=== PATIENT | female | born 1965 | race Asian ===

== ENCOUNTER 2021-03-12 20:13 | Inpatient (IN) | payer BC ==
[2021-03-12 22:25] LABS: BASO % 0.7 % (0-2.0); EOS % 6.9 % (0-4.5); LYMPH % 23.1 % (8-40); MCH 26.8 pg (25.7-33.7); MCHC 32.4 g/dl (32.0-36.0); MEAN CELL VOLUME 82.8 fl (80-96); MEAN PLT VOLUME 7.4 fl (7.5-11.1); MONO % 19.9 % (3.8-10.2); NEUT % 49.4 % (42.8-82.8); PLATELET COUNT 354 10^3/uL (134-434); RBC 2.54 M/mm3 (3.60-5.2); RDW 17.1 % (11.6-15.6)
[2021-03-12 22:29] LABS: HEMOGLOBIN 6.8 GM/dL (10.7-15.3)
[2021-03-12 22:34] LABS: INR 1.14 (0.83-1.09); PROTHROMBIN TIME (PATIENT) 13.4 SEC (9.7-13.0)
[2021-03-12 22:57] LABS: BLOOD UREA NITROGEN 15.9 mg/dL (7-18); CALCIUM 8.8 mg/dL (8.5-10.1)
[2021-03-12 22:58] LABS: ALBUMIN 3.2 g/dl (3.4-5.0)
[2021-03-12 23:00] LABS: CREATININE 0.7 mg/dL (0.55-1.3)
[2021-03-12 23:02] LABS: BILIRUBIN,TOTAL 0.3 mg/dL (0.2-1); TOT PROT 7.6 g/dl (6.4-8.2)
[2021-03-13] MEDS ORDERED: ACETAMINOPHEN 1000 MG/100 ML BAG IVPB PRN (01:06)
[2021-03-13 05:31] VITALS: BMI 26.9
[2021-03-13] MEDS ORDERED: MIDAZOLAM HCL 2 MG/2 ML SINGLE DOSE VIAL ONE ×2 (07:05)
[2021-03-13] MEDS ORDERED: BUPIVACAINE LIPOSOME/PF (EXPAREL) 266 MG/20 ML VIAL ONE (07:07)
[2021-03-13] MEDS ORDERED: BUPIVACAINE HCL/PF 0.5% (5MG/ML) 10 ML VIAL ONE (07:07)
[2021-03-13] MEDS ORDERED: PROPOFOL 20 ML ONE ×3 (07:27→09:25)
[2021-03-13] MEDS ORDERED: ROCURONIUM BROMIDE 50 MG/5 ML SYRINGE ONE (07:27)
[2021-03-13] MEDS ORDERED: SUCCINYLCHOLINE CHLORIDE 200 MG/10 ML SYRINGE ONE (07:27)
[2021-03-13] MEDS ORDERED: CEFAZOLIN 2 GM in DEXTROSE 5%-WATER - 100 ML IVPB ONE (08:08)
[2021-03-13] MEDS ORDERED: ceFAZolin SODIUM 1 GM VIAL IVPB ONE (08:25)
[2021-03-13] MEDS ORDERED: KETAMINE HCL 200 MG/20 ML VIAL ONE (08:33)
[2021-03-13] MEDS ORDERED: NEOSTIGMINE METHYLSULFATE 0.5 MG/1 ML - 10 ML MDV ONE (09:20)
[2021-03-13] MEDS ORDERED: GLYCOPYRROLATE 0.2 MG/1 ML VIAL ONE (09:21)
[2021-03-13] MEDS ORDERED: PROMETHAZINE HCL 25 MG/1 ML VIAL IVPUSH PRN (10:07)
[2021-03-13] MEDS ORDERED: IBUPROFEN 800 MG/8 ML IJ IVPB PRN (10:08)
[2021-03-13] MEDS ORDERED: HYDROmorphone HCl 2 MG/ML VIAL IVPB PRN (10:08)
[2021-03-13] MEDS ORDERED: oxyCODONE HCL 5 MG TABLET PO PRN (10:08)
[2021-03-13] MEDS ORDERED: ACETAMINOPHEN 325 MG TABLET (FP) PO PRN (10:08)
[2021-03-13] MEDS ORDERED: LACTATED RINGERS SOLUTION 1,000 ML IV SCH (10:15)
[2021-03-13] MEDS ORDERED: LACTATED RINGERS SOLUTION 1,000 ML/1,000 ML INFUS.BAG IV SCH (10:30)
[2021-03-13] MEDS ORDERED: ONDANSETRON 4 MG/2 ML VIAL IVPUSH PRN (10:35)
[2021-03-13] MEDS ORDERED: ACETAMINOPHEN 1000 MG/100 ML BAG IVPB ONE (10:36)
[2021-03-13 12:53] LABS: BASO % 0.4 % (0-2.0); EOS % 1.8 % (0-4.5); HEMATOCRIT 27.6 % (32.4-45.2); HEMOGLOBIN 8.9 GM/dL (10.7-15.3); LYMPH % 8.5 % (8-40); MCH 26.4 pg (25.7-33.7); MCHC 32.3 g/dl (32.0-36.0); MEAN CELL VOLUME 81.8 fl (80-96); MEAN PLT VOLUME 7.6 fl (7.5-11.1); MONO % 5.4 % (3.8-10.2); NEUT % 83.9 % (42.8-82.8); PLATELET COUNT 315 10^3/uL (134-434); RBC 3.37 M/mm3 (3.60-5.2); RDW 17.3 % (11.6-15.6); WHITE BLOOD COUNT 15.1 K/mm3 (4.0-10.0)
[2021-03-13 13:14] LABS: ALBUMIN 2.8 g/dl (3.4-5.0); CALCIUM 8.1 mg/dL (8.5-10.1)
[2021-03-13 13:15] LABS: BLOOD UREA NITROGEN 12.8 mg/dL (7-18)
[2021-03-13 13:18] LABS: CREATININE 0.6 mg/dL (0.55-1.3); PHOSPHOROUS 2.2 mg/dL (2.5-4.9)
[2021-03-13 13:19] LABS: BILIRUBIN,TOTAL 0.6 mg/dL (0.2-1); TOT PROT 6.7 g/dl (6.4-8.2)
[2021-03-13] MEDS ORDERED: PT OWN MED DRAWER 7, Y5N ONE (16:24)
[2021-03-13] MEDS: CEFAZOLIN 2 GM in DEXTROSE 5%-WATER - 100 ML IVPB SCH (18:29)
[2021-03-14] MEDS ORDERED: PT OWN MED DRAWER 7, Y5N ONE (00:59)
[2021-03-14] MEDS: CEFAZOLIN 2 GM in DEXTROSE 5%-WATER - 100 ML IVPB SCH (01:16)
[2021-03-14] MEDS: oxyCODONE HCL 5 MG TABLET PO PRN (04:27)
[2021-03-14 09:04] LABS: BASO % 0.4 % (0-2.0); EOS % 0.1 % (0-4.5); HEMATOCRIT 26.8 % (32.4-45.2); HEMOGLOBIN 8.9 GM/dL (10.7-15.3); LYMPH % 9.3 % (8-40); MCHC 33.3 g/dl (32.0-36.0); MEAN PLT VOLUME 8.4 fl (7.5-11.1); MONO % 11.2 % (3.8-10.2); PLATELET COUNT 270 10^3/uL (134-434); RDW 17.4 % (11.6-15.6); WHITE BLOOD COUNT 19.3 K/mm3 (4.0-10.0)
[2021-03-14 09:28] LABS: CALCIUM 8.4 mg/dL (8.5-10.1)
[2021-03-14 09:29] LABS: BLOOD UREA NITROGEN 12.9 mg/dL (7-18); MAGNESIUM 1.9 mg/dL (1.8-2.4)
[2021-03-14 09:32] LABS: CREATININE 0.8 mg/dL (0.55-1.3); PHOSPHOROUS 1.7 mg/dL (2.5-4.9)
[2021-03-14] MEDS ORDERED: NAPH,MB-DB/K PH,MBDB POWDER PACKET PO ONE (10:00)
[2021-03-14] MEDS: IRON SUCROSE INJECTION 200 MG in SODIUM CHLORIDE 90 ML IVPB SCH (12:19)
[2021-03-15] MEDS ORDERED: DOCUSATE SODIUM 100 MG CAPSULE (FP) PO ONE (05:12)
[2021-03-15] MEDS ORDERED: PT OWN MED DRAWER 7, Y5N ONE (09:05)
[2021-03-15] MEDS: oxyCODONE HCL 5 MG TABLET PO PRN (09:12)
[2021-03-15 09:22] LABS: HEMATOCRIT 24.7 % (32.4-45.2); HEMOGLOBIN 8.2 GM/dL (10.7-15.3); MCH 26.2 pg (25.7-33.7); MEAN CELL VOLUME 79.3 fl (80-96); MEAN PLT VOLUME 7.1 fl (7.5-11.1); PLATELET COUNT 284 10^3/uL (134-434); RBC 3.12 M/mm3 (3.60-5.2)
[2021-03-15] MEDS ORDERED: POLYETHYLENE GLYCOL (HEALTHYLAX) 3350 17 GM PACKET PO SCH (10:00)
[2021-03-15 10:01] LABS: CALCIUM 8.4 mg/dL (8.5-10.1)
[2021-03-15 10:02] LABS: BLOOD UREA NITROGEN 11.4 mg/dL (7-18); MAGNESIUM 2.1 mg/dL (1.8-2.4)
[2021-03-15 10:05] LABS: CREATININE 0.6 mg/dL (0.55-1.3); PHOSPHOROUS 2.5 mg/dL (2.5-4.9)
[2021-03-15] MEDS ORDERED: IRON SUCROSE INJECTION 200 MG in SODIUM CHLORIDE 90 ML IVPB ONE (10:15)
[2021-03-15] MEDS ORDERED: DOCUSATE SODIUM 100 MG CAPSULE (FP) PO PRN (11:40)
[2021-03-15] MEDS ORDERED: POTASSIUM CHLORIDE TABS 20 MEQ TABLET.ER (FP) PO ONE (12:12)
[2021-03-15] MEDS: IRON SUCROSE INJECTION 200 MG in SODIUM CHLORIDE 90 ML IVPB SCH (12:32)
[2021-03-15] MEDS ORDERED: BISACODYL 5 MG TABLET.DR (FP) PO ONE (13:30)
[2021-03-15 14:01] VITALS: BP 157/97; PULSE 93; TEMP 99.1
== END 2021-03-15 18:53 | disposition home or self-care (01) | DRG 742 ==
LOC: JER 20:13 → JERBED 22:46 → J7W 03-13 05:02
PROVIDERS: ADMIT Internal Medicine; ATTEND Internal Medicine
PROC: 30233N1 Transfusion of Nonautologous Red Blood Cells into Peripheral Vein, Percutaneous Approach (ICD-10-PCS; 2021-03-12)
PROC: 0UB20ZZ Excision of Bilateral Ovaries, Open Approach (ICD-10-PCS; 2021-03-13)
PROC: 0UB70ZZ Excision of Bilateral Fallopian Tubes, Open Approach (ICD-10-PCS; 2021-03-13)
PROC: 0UT90ZL Resection of Uterus, Supracervical, Open Approach (ICD-10-PCS; principal; 2021-03-13 08:00)
DX: D25.9 Leiomyoma of uterus, unspecified (principal); D62 Acute posthemorrhagic anemia; R10.2 Pelvic and perineal pain; N92.0 Excessive and frequent menstruation with regular cycle; N72 Inflammatory disease of cervix uteri
CPT/HCPCS: 36415; 36430; 36511; 71045-TC-FY; 80048; 80053; 83540; 83550; 83735; 84100; 85025; 85027; 85610; 85730; 86922; 93005; 93010; 94010; 94760; 97116-GP; 97161-GP; 99285-25; C9803-CS; J1756; P9038; P9058; U0003; U0005